=== PATIENT | male | born 1945 | race Caucasian/White ===

== ENCOUNTER → 2017-09-26 | Outpatient (CLI) | payer OTHER | LOC: M.RAD 16:09 | DX: R06.02 Shortness of breath (principal); R63.4 Abnormal weight loss ==

== ENCOUNTER → 2018-04-22 | Outpatient (CLI) | payer OTHER | LOC: M.LAB 14:51 | DX: F03.90 Unspecified dementia, unspecified severity, without behavioral disturbance, psychotic disturbance, mood disturbance, and anxiety (principal); R26.9 Unspecified abnormalities of gait and mobility; R25.1 Tremor, unspecified ==

== ENCOUNTER → 2018-04-30 | Outpatient (CLI) | payer OTHER | LOC: M.MRI 10:51 | DX: G31.9 Degenerative disease of nervous system, unspecified (principal); I67.82 Cerebral ischemia; R25.1 Tremor, unspecified; R26.9 Unspecified abnormalities of gait and mobility ==

== ENCOUNTER → 2018-05-20 | Outpatient (CLI) | payer OTHER | LOC: M.LAB 14:00 | DX: F03.90 Unspecified dementia, unspecified severity, without behavioral disturbance, psychotic disturbance, mood disturbance, and anxiety (principal); R49.0 Dysphonia; R25.1 Tremor, unspecified ==

== ENCOUNTER → 2019-03-12 | Outpatient (CLI) | payer OTHER | LOC: M.RAD 16:07 | DX: M47.816 Spondylosis without myelopathy or radiculopathy, lumbar region (principal); M25.551 Pain in right hip ==

== ENCOUNTER → 2019-04-15 | Outpatient (CLI) | payer OTHER ==
[~2019-04-15] MED LIST: ARICEPT10 M1 PO; CARVEDILOL3.125 MG PO; DYMISTA NASAL S23 GM INH; FLOMAX0.4 MG PO; MEDROLDOSEPACK PO; MELOXICAM15 MG PO; NAMENDA 10 MG T10 MG PO; NORVASC5 M1 PO; PROTONIX40 M2 PO; REMERON15 M2 PO; SEROQUEL 25 MG25 MG PO; SERTRALINE HCL25 M1 PO; TYLENOL EXTRA500 MG PO; VITAMIN D250000 UNIT PO; XANAX2 MG PO; ZOCOR 20 MG TAB20 M1 PO
--- NOTE | 2019-04-28 13:25 | PAINCON ---
[address] [address] PAIN MANAGEMENT CONSULTATION Name: DIANE HAYNES JR Room: [facility]#: [id number] Admission: 04/15/19 Attend Phys: Rodo Ribera MD Discharge: Date of : 49 Report #: [id number] THIS REPORT FOR: //name// CC: Tiera Ribera DATE OF SERVICE: 04/15/2019 CHIEF COMPLAINT: Right hip and low back pain. HISTORY OF PRESENT ILLNESS: The patient is a 73-year-old gentleman who has been referred to the Pain Clinic for evaluation of right hip and low back pain. He has been wearing a back brace. He has been experiencing pain that radiates down into his right hip, buttocks and into the thigh. There is a squeezing shooting, burning type of pain with numbness and tingling. Also, has discomfort down in the bottom of his foot and has some discomfort in his upper body involving his hands. He lives in an assisted living environment. He fell down steps. He hit his head against the wall when he fell. Rates his pain as a 9/10 today. Notes the pain improves with rest and with massage. Hot washcloth has been helpful. He has been quite problematic and almost brought in to the point of tears secondary to the pain. Has tried Tylenol with not much effect. Does have a history of spinal stenosis. Has had surgery in the lumbar spine. He has used nonsteroidal meloxicam daily. ALLERGIES: PENICILLIN. CURRENT MEDICATIONS: Alprazolam 2 mg, Flomax 0.4 mg, simvastatin 20 mg, magnesium citrate q.6-8 hours p.r.n., vitamin D2 50,000 units, amlodipine 5 mg, Seroquel 25 mg, Coreg 3.125 b.i.d., sertraline 25 mg, pantoprazole 40 mg, vitamin D3 is 50,000 units, memantine 10 mg, azelastine b.i.d. PAST MEDICAL HISTORY: Hyperlipidemia, anxiety, depressive disorder, essential hypertension, vitamin deficiency, hyperlipidemia, dementia, major depressive disorder, insomnia, malignant neoplasm of the prostate in 2018. SOCIAL HISTORY: He is single, retired. PAST SURGICAL HISTORY: The patient states he has had 3 surgeries on the right knee, 2 surgeries on the left knee, fracture of the left arm, fracture of the right ankle, history of cervical spine fracture, history of lumbar spinal stenosis surgery. LABORATORY DATA: MRI of the head without contrast dated 04/30/2018, extensive atrophy and mild microvascular changes. No hemorrhagic [place] [address] PAIN MANAGEMENT CONSULTATION Name: DIANE HAYNES JR Room: [facility]#: [id number] Admission: 04/15/19 Attend Phys: Rodo Ribera MD Discharge: Date of : 49 Report #: [id number] X-ray of the hip, AP and lateral, dated 03/12/2019, indication right hip pain. Impression: No acute osseous abnormalities or significant hip arthrosis. PAIN CLINIC ASSESSMENT/PHYSICIAN QUALITY REPORTING SYSTEM: 1. Height: 5 feet 8 inches, weight 208 pounds, BMI 31. 2. Vital Signs: Blood pressure 142/73, heart rate 72, respiratory rate 16, room air saturation 95%, temperature 97.9. 3. Pain intensity is 9/10. 4. Fall history: The patient did fall and hit his head in the last 3 months. 5. Blood thinner. The patient is not on a blood-thinning medication. 6. Hypertension. The patient is being treated for hypertension. 7. Opioids greater than 6 weeks. The patient is not on opioid regimen. 8. Risk assessment tool, low for opioid use. 9. Functional assessment tool. 10. Recreational drug use. The patient denies use of recreational drugs. 11. Tobacco: The patient denies use of tobacco. 12. Alcohol. The patient denies use of alcoholic beverages. PHYSICAL EXAMINATION: GENERAL: The patient is a well-developed white male, appears his stated age. He is alert and oriented x 3. The patient's history is provided by him, and it appears to be consistent with the history of present illness and that provided by his primary physician. HEENT: The patient has somewhat of a disconjugate gaze. HEART: Has heart rate regular. LUNGS: Clear. ABDOMEN: Nontender. MUSCULOSKELETAL: Upper extremity muscle strength judged to be 5-/5 for the major muscle groups. Trace biceps reflex, absent brachioradialis and triceps. Well-healed scar in the low back area. Forward bending to 60 degrees was limited secondary to the patient's pain and discomfort. The patient walks leaning to the right. Left and right rotation cause some increased low back discomfort. Has some discomfort in his right ankle. Has pain in the lumbar area with pain that radiates around the right lumbar area and into the area of the anterior thigh in the area of approximately L1 through L3. It involves the right hip area. ASSESSMENT: 1. Lumbar radicular pain involving the right hip. 2. Hyperlipidemia. 3. Anxiety. 4. Depressive disorder. 5. Essential hypertension. 6. Vitamin deficiency. 7. Hyperlipidemia. 8. Dementia. [address] [place] [address] PAIN MANAGEMENT CONSULTATION Name: DIANE HAYNES JR Room: [facility]#: [id number] Admission: 04/15/19 Attend Phys: Rodo Ribera MD Discharge: Date of : 49 Report #: [id number] 9. Major depressive disorder. 10. Insomnia. 11. Malignant neoplasm of the prostate in 2018. RECOMMENDATIONS: We discussed treatment options with the patient. At this juncture, we will try a Medrol Dosepak. The patient will note its efficacy. If his pain persists, we will consider the possibility of an epidural steroid injection. The patient has been wearing a back brace. Pain continues to radiate down in the right hip, buttocks area with a squeezing shooting, burning, numbness and tingling. If the patient's pain continues, we will consider an epidural steroid injection. We would like to thank you for letting us participate in his care. We hope he continues to improve. <ELECTRONICALLY SIGNED> By: Rodo Ribera MD 04/28/19 [id number]. Charles Ribera MD /nt
== END ==
LOC: M.PC 05:07
DX: M54.16 Radiculopathy, lumbar region (principal); E78.5 Hyperlipidemia, unspecified; F41.9 Anxiety disorder, unspecified; F32.9 Major depressive disorder, single episode, unspecified; I10 Essential (primary) hypertension; F03.90 Unspecified dementia, unspecified severity, without behavioral disturbance, psychotic disturbance, mood disturbance, and anxiety; Z88.2 Allergy status to sulfonamides; Z88.8 Allergy status to other drugs, medicaments and biological substances

== ENCOUNTER → 2019-04-24 | Outpatient (CLI) | payer OTHER ==
--- NOTE | 2019-04-29 10:01 | PAINCON ---
[address] [address] PAIN MANAGEMENT CONSULTATION Name: DIANE HAYNES JR Room: [facility]#: [id number] Admission: 04/24/19 Attend Phys: Rodo Ribera MD Discharge: Date of : 49 Report #: [id number] THIS REPORT FOR: //name// CC: Tiera Ribera CHIEF COMPLAINT: Right hip and low back pain. HISTORY OF PRESENT ILLNESS: The patient is a 73-year-old gentleman, who has been followed in the pain clinic because of hip pain and discomfort. It involves his right hip. It has been problematic since 01/2019. He notes that the pain radiates down into the right side of his leg. He occasionally feels some numbness and tingling. He does live in an assisted living environment. He rates his pain as 6-7/10. He has fallen. When he fell, he hit his head against the wall. He does have a history of spinal stenosis. He has had lumbar surgery. He is using a nonsteroidal anti-inflammatory medication to help with his pain. ALLERGIES: PENICILLIN. CURRENT MEDICATIONS: Alprazolam 2 mg, Flomax 0.4 mg, simvastatin 20 mg, mag citrate q. 6-8 hours p.r.n., vitamin D2 50,000 units, amlodipine 5 mg, Seroquel 25 mg, Coreg 3.125 mg b.i.d., Sertraline 25 mg, pantoprazole 40 mg, vitamin D3 50,000 units, memantine 10 mg, Azelastine b.i.d. PAIN CLINIC ASSESSMENT/PQRS: 1. Height 5 feet 8 inches, weight 205 pounds, BMI is 31. 2. Vital signs: Blood pressure 135/88, heart rate 69, respiratory rate 16, room air saturation 95%, temperature 97.8. 3. Pain intensity 6-7/10. 4. Fall history: The patient did fall and hit his head about 3 months ago. 5. Blood thinner: The patient is not on a blood thinning medication. 6. Hypertension: The patient is being treated for hypertension. 7. Opioids greater than 6 weeks. The patient is not on an opioid regimen. 8. Risk assessment tool: Low for opioid use. 9. Functional assessment tool: Evaluated. 10. Recreational drug use: The patient denies. 11. Tobacco: The patient denies use of tobacco. 12. Alcoholic beverages. The patient denies use of alcoholic beverages. The patient has had alcohol dependence in the past. PHYSICAL EXAMINATION: GENERAL: The patient is alert and oriented. Appears to be oriented to person, place and time. NEUROLOGIC: Upper extremity muscle strength is judged to be 5/5 for the [place] [address] PAIN MANAGEMENT CONSULTATION Name: DIANE HAYNES JR Room: [facility]#: [id number] Admission: 04/24/19 Attend Phys: Rodo Ribera MD Discharge: Date of : 49 Report #: [id number] HEART: Regular rate. ABDOMEN: Nontender. Bowel sounds present. MUSCULOSKELETAL: The patient walks leaning somewhat to the right. He has pain that radiates down and around the right lumbar area into the anterior portion of his thigh at approximately L1/L3. This involves the right hip area. IMPRESSION: 1. Lumbar pain with pain radiating into the right hip/pain and discomfort consistent with greater trochanteric bursitis. 2. Hyperlipidemia. 3. Anxiety. 4. Depression. 5. Essential hypertension. 6. Vitamin D deficiency. 7. Hyperlipidemia. 8. Dementia. 9. Major depressive disorder. 10. Insomnia. 11. Malignant neoplasm of the prostate in 2018. RECOMMENDATIONS: We discussed treatment options with the patient. The patient has pain and discomfort in the area of the right hip. Palpation in the area of the greater trochanteric bursa does cause a reproduction of the patient's pain and discomfort. He has tried Medrol Dosepak. He noticed some benefit, but not a significant amount. We will proceed with an injection of the greater trochanteric area to help control and decrease his pain. The risks and benefits of the procedure were discussed. They include bleeding, infection, worsening of pain, no improvement in pain and the patient elects to proceed. PROCEDURE NOTE: The patient was taken to the procedure area. He was then assisted in getting on the table. He was placed in the left lateral decubitus position. The right hip area was sterilely prepped with a chlorhexidine solution and allowed to dry. The greater trochanteric bursa area was identified. A 25-gauge needle was then used to provide a skin wheal. A 20-gauge spinal needle was then advanced into the area of the greater trochanteric area. Aspiration was negative. A total of 40 mg triamcinolone and 8 mL of 0.25% bupivacaine was injected. The patient tolerated the procedure well. His pain decreased to 3/10 at the time of discharge. There was no numbness or weakness associated with his right leg. He will follow up in the near future. Hopefully, [place] [address] PAIN MANAGEMENT CONSULTATION Name: DIANE HAYNES JR Room: [facility]#: [id number] Admission: 04/24/19 Attend Phys: Rodo Ribera MD Discharge: Date of : 49 Report #: [id number] We would like to thank you for letting us participate in his care. We hope he continues to improve. <ELECTRONICALLY SIGNED> By: Rodo Ribera MD 04/29/19 1001 [id number]. Charles Ribera MD /nt
== END | disposition home or self-care (01) ==
LOC: M.PC 05:32
DX: M25.551 Pain in right hip (principal); M70.61 Trochanteric bursitis, right hip; M54.16 Radiculopathy, lumbar region; I10 Essential (primary) hypertension; E78.5 Hyperlipidemia, unspecified; F41.9 Anxiety disorder, unspecified; F32.9 Major depressive disorder, single episode, unspecified; F03.90 Unspecified dementia, unspecified severity, without behavioral disturbance, psychotic disturbance, mood disturbance, and anxiety; G47.00 Insomnia, unspecified; Z98.890 Other specified postprocedural states; Z85.46 Personal history of malignant neoplasm of prostate; Z88.0 Allergy status to penicillin; Z79.899 Other long term (current) drug therapy

== ENCOUNTER → 2019-06-09 | Outpatient (CLI) | payer OTHER | LOC: M.RAD 16:48 | DX: R05 Cough (principal); R07.1 Chest pain on breathing ==